=== PATIENT | male | born 1970 | race Caucasian/White ===

== ENCOUNTER 2025-02-21 17:16 | Emergency (ER) | payer OTHER, SELFPAY ==
[2025-02-21 17:26] VITALS: BP 137/83
[2025-02-21 19:13] VITALS: BMI 37.5
[2025-02-21 19:15] VITALS: BP 145/85
[2025-02-21 19:38] LABS: Hematocrit 38.9 % (39.0-52.0); Hemoglobin 13.3 g/dL (13.0-18.0); Mean Corp Hgb Conc. 34.2 g/dL (33.0-37.0); Mean Corpuscular Volume 89.8 fL (80.0-94.0); Nucleated Red Blood Cells % 0 % (-); Platelet Count 160 10^3/uL (130-400); Red Cell Dist. Width 12.7 % (11.5-14.5)
[2025-02-21] MEDS: ELIQUIS 10 MG PO (19:43)
[2025-02-21 19:59] LABS: Blood Urea Nitrogen 17 mg/dl (9-20); Calcium 9.2 mg/dl (8.4-10.2); Carbon Dioxide 26 mmol/L (22-30); Chloride 106 mmol/L (98-107); Estimated Creatinine Clearance > 125 ml/min; Glucose 93 mg/dl (70-99); Potassium 4.5 mmol/L (3.5-5.1); Sodium 139 mmol/L (135-145); eGFR > 60.00
--- NOTE | 2025-02-21 20:05 | ED.GENMED ---
History of Present Illness
General
Chief Complaint: DVT/Possible Blood Clot
Source: patient
Time Seen by Provider: 02/21/25 18:44
History of Present Illness
History of Present Illness:
54-year-old male with no significant past medical history presents to the emergency department for evaluation after noticing some swelling to the left lower extremity with discomfort over the last week, today while gardening the noticed some
redness to the area prompting them to come to the ER for further evaluation. Patient notes slight discomfort but no weakness or numbness. Denies any trauma. Patient's only DVT risk factor includes recent travel to [place] back in December. Denies
any chest pain, shortness of breath, cough, pleurisy, hemoptysis, exertional dyspnea or any other concerns. Patient does note that his mother likely has a history of blood clots but is unable to further elaborate much about this history.
Past History
Past History
ED Past Medical History: None
ED Past Surgical History: None
Social History
Tobacco: Non-smoker
Alcohol: Occasional
Drug: None
Personal:
Living: with family
Review of Systems
Review of Systems
All Other Systems: ROS reviewed and negative except as documented in HPI and ROS
Phy Exam
Physical Exam
Physical Exam:
GENERAL: Alert , in no apparent distress
HEAD: Normocephalic atraumatic
EYE: conjunctiva clear
NECK: Supple, no significant adenopathy.
ENT: o/p clr, mmm.
CARDIAC: Regular rate and rhythm
LUNGS: Clear breath sounds bilaterally, no acute respiratory distress, no wheezes/rales/rhonchi
NEUROLOGICAL: Alert and oriented
SKIN: Warm and dry, slight erythema and edema to LLE, non-tender, no increased warmth
MUSCULOSKELETAL: well perfused. easily palpable pedal/tibial pulses, CR < 2 sec
PSYCH: Normal and appropriate interaction.
Scores
Heart Failure Risk
Heart Failure Risk Score: Not Applicable
Heart Score for Chest Pain Patients
STEMI patient?: Not applicable
Withdrawal Assessment of Alcohol
Withdrawal Assessment Completed?: Not applicable
Course
Orders/Labs/Results
Orders:
Orders
02/21/25 17:30
Venous Doppler Lwr Ext Left [US Periph Venous LOWER Ext LT] Urgent
Comment:
Reason For Exam: swelling, warmth, redness
02/21/25 19:28
Basic Metabolic Panel Urgent
Complete Blood Count/With Diff Urgent
02/21/25 19:39
Apixaban [Eliquis] 10 mg PO NOW STA
Abnormal Lab Results
02/21/25
19:28
RBC 4.33 L 10^6/uL
(4.70-6.10)
Hct 38.9 L %
(39.0-52.0)
Immature Gran % 0.6 H %
(0-0.5)
02/21/25 19:28
02/21/25 19:28
Vital Signs
Initial and Last Documented VS:
Initial Vital Signs
Temp Pulse Resp BP Pulse Ox
98.5 F 65 16 137/83 98
02/21/25 17:26 02/21/25 17:26 02/21/25 17:26 02/21/25 17:26 02/21/25 17:26
Last Documented Vital Signs
Temp Pulse Resp BP Pulse Ox
98.5 F 60 18 145/85 99
02/21/25 17:26 02/21/25 19:18 02/21/25 19:18 02/21/25 19:15 02/21/25 20:06
MDM/Problems Addressed
Differential Diagnosis Includes:
DVT
Cellulitis
PAD
PVD
Contact Dermatitis
MDM/Problems Addressed:
54-year-old male presenting to the ER for evaluation of mild discomfort and swelling to the left lower extremity over the last week, today noticed more swelling and redness prompting him to come to the ER. Ultrasound ordered to rule out DVT.
Disposition pending.
*Radiology
Radiology exam reviewed: radiology read reviewed
*Pulse Oximetry
SaO2: 99
Oxygen Mode of Delivery: Room air
Patient hypoxic: no
*Critical Care Note
Total Time (30-74mins, 75-104mins- exclusive of procedures): Not Applicable
Patient Management
Escalation/DeEscalation of care consider admission/obs:
Ultrasound shows occlusive thrombus in the left popliteal vein as well as the gastrocnemius vein. Remaining veins within the left lower extremity remain patent. I ordered labs to assess renal function as well as hemoglobin which are reassuring.
Will start patient on Eliquis. He was advised on potential side effects of Eliquis as well as medications to avoid while taking Eliquis. He will follow-up with primary care provider. Aware of return precautions to the ER.
ED Attending Note
-
Portions of this chart may have been created with voice recognition software.� Occasional wrong word or��sound alike� substitutions may have occurred due to the inherent limitations of voice recognition software.
Discharge Plan
Departure
Patient Disposition: Home (Routine Discharge)
Date of Disposition: 02/21/25
Time of Disposition: 20:05
Patient with high blood pressure during this ER visit?: No
Discharge Problem:
Acute deep vein thrombosis (DVT) of distal end of left lower extremity
Instructions: Deep Vein Thrombosis (Blood Clots in the Legs) (DC)
Prescriptions:
New
Eliquis 5 mg tablet
5 mg PO BID Qty: 68 0RF
Rx Instructions:
Take two tabs PO BID x 6.5 days. Take 1 tab PO BID remaining 21 days
No Action
Theragen Tablet
1 tab PO MOWEFR
triamcinolone acetonide 0.1 % cream
1 applic TOPICAL DAILYPRN PRN (Reason: eczema)
fluticasone propionate [Flonase] 50 mcg/actuation [place],Suspension
1 spray INTRANASAL DAILY
cholecalciferol (vitamin D3) 25 mcg (1,000 unit) Tablet
25 mcg PO SUTUTHSA
omega 1-cll-iuj-fish oil [Fish Oil] 1,000 (120-180) mg Capsule
1 cap PO DAILY
Referrals:
Erika Garcia MD [Family Provider, Family Practice]
Interventions
Interventions:
*Risk Screen - Suicide Last Done: 02/21/25 17:26
*General Assessment Last Done: 02/21/25 17:26
*Neglect/Abuse Screening Last Done: 02/21/25 17:26
*ED- Fall Risk Assessment Last Done: 02/21/25 17:26
*ED COVID-19 Vaccine History Last Done: 02/21/25 17:26
*ED Influenza Vaccine History Last Done: 02/21/25 17:26
*Nursing Disposition Last Done: 02/21/25 20:11
ED- Cardiac Assessment Last Done: 02/21/25 19:15
ED- Pulmonary Assessment Last Done: 02/21/25 19:15
ED-Peripheral Vascular Assessment Last Done: 02/21/25 19:17
ED-Skin Assessment Last Done: 02/21/25 19:15
Discharge Date and Time
Discharge Date/Time: 02/21/25 20:19
Print Language: [id number]
== END 2025-02-21 20:19 | disposition home or self-care (01) ==
LOC: EMR 17:16
PROVIDERS: Physician Assistant Medical; EMERGENCY PHYSICIAN Emergency Medicine; FAMILY PHYSICIAN Family Medicine
DX: I82.432 Acute embolism and thrombosis of left popliteal vein (principal); I82.462 Acute embolism and thrombosis of left calf muscular vein; R22.42 Localized swelling, mass and lump, left lower limb; Z79.01 Long term (current) use of anticoagulants
CPT/HCPCS: 99284; 80048; 85025; 93971

== ENCOUNTER → 2025-03-18 07:21 | Outpatient (REF) | payer OTHER, SELFPAY | LOC: HWRCS 07:21 | PROVIDERS: ATTENDING PHYSICIAN Internal Medicine Cardiovascular Disease; FAMILY PHYSICIAN Family Medicine | DX: Z76.89 Persons encountering health services in other specified circumstances (principal); I82.409 Acute embolism and thrombosis of unspecified deep veins of unspecified lower extremity; I48.91 Unspecified atrial fibrillation | CPT/HCPCS: 93306 ==